=== PATIENT | male | born 1990 | race American Indian/Alaskan Native ===

== ENCOUNTER 2016-10-04 09:48 | Emergency (ER) | payer OTHER ==
[2016-10-04 10:43] VITALS: BP 131/77
--- NOTE | 2016-10-04 13:20 | Emergency Department Report ---
HPI - General Chief Complaint: Extremity Injury, Upper Time Seen by Provider: 10/04/16 13:19 - HPI HPI: Patient is a 25-year-old male who presents to the ED complaining of foreign object in finger times one day. Patient states he was working on a car yesterday when he had this complaints or something enter his left index finger. Patient states today he started to experience pain on that finger. Patient states the finger feels tight and feels throbbing type pain with 5 out of 10 intensity. Patient states yesterday his friend was able to pull black object from the finger but patient does not recall what it was. Patient denies fevers/chills/nausea/vomiting/abdominal pain or shortness of breath or chest pain ED Past Medical Hx - Past Medical History Previous Medical History?: No - Surgical History Past Surgical History?: No - Social History Smoking Status: Unknown if ever smoked Substance Use Type: None - Medications Home Medications: Home Medications Medication Instructions Recorded Confirmed Last Taken Type Ibuprofen [Motrin 800 MG tab] 800 mg PO Q8HR PRN #30 tablet 10/04/16 Unknown Rx ED Review of Systems ROS: Stated complaint: OBJECT IMPALED IN LEFT PHALANGES/AT WORK Other details as noted in HPI Constitutional: denies: chills, fever Eyes: denies: eye pain, eye discharge, vision change ENT: denies: ear pain, throat pain Respiratory: denies: cough, orthopnea, shortness of breath, SOB with exertion, wheezing Cardiovascular: denies: chest pain, palpitations Endocrine: no symptoms reported Gastrointestinal: denies: abdominal pain, nausea, vomiting, diarrhea Genitourinary: denies: urgency, dysuria Musculoskeletal: denies: back pain, joint swelling, arthralgia Skin: denies: rash, lesions Neurological: denies: headache, weakness, numbness, paresthesias Psychiatric: denies: anxiety, depression Hematological/Lymphatic: denies: easy bleeding, easy bruising, swollen glands Physical Exam - Physical Exam Vital Signs: Vital Signs 10/04/16 10:31 Temperature 97.9 F Pulse Rate 62 Respiratory 18 Rate Blood Pressure 131/77 O2 Sat by Pulse 100 Oximetry General: Alert and oriented 3. Vital signs stable Physical Exam: GENERAL: Alert and oriented x3, no apparent distress, Normal Gait, atraumatic. HEAD: Head is normocephalic and a-traumatic. EYES: Extra ocular muscles are intact. Pupils are equal, round, and reactive to light and accommodation. EARS: symetrical, atraumatic, non tender, ear canal clear and moderate cerumen, tympanic membrance non inflamed. gross auditory nml bilaterally. NOSE: Nose symetrical, Nontender,Nares appeared normal. MOUTH:Mouth is well hydrated and without lesions. Tonsils nonerythematous or swollen, Uvula midline, Tongue not elevated. Mucous membranes are moist. Posterior pharynx clear, no exudate or lesions. Patent airways. NECK: Supple. Non edematous, No carotid bruits. No lymphadenopathy or thyromegaly. LUNGS: Symetrical with respiration, No wheezing, no rales or crackles, CTAB. HEART: S1, S2 present, regular rate and rhythm without murmur, no rubs, no gallops. ABDOMEN: No organomegaly was noted,Positive bowel sounds, soft, and non- distended. . Nontender to palpation on all Quadrants, NO CVA tenderness. EXTREMITIES/MUSCULOSKELETAL: No cyanosis, clubbing, rash, lesions or edema. Full ROM bilaterally. UE/LE Pulses 2+ bilaterally. LE and UE 5+ strength bilaterally FINGER:pin point black point of entry on left index distal finger, tender to palpation, full ROM , sensory touch intact, no feeling of foreign object palpated NEUROLOGIC: No focal Deficit, Cranial nerves II through XII are grossly intact. No loss of sensation, No facial droop, PSYCHIATRIC: Mood is congruent with affect, denies suicidal or homicidal ideations. SKIN: Warm and dry, No lesions, No ulceration or induration present. ED Course Vital Signs 10/04/16 10:31 Temperature 97.9 F Pulse Rate 62 Respiratory 18 Rate Blood Pressure 131/77 O2 Sat by Pulse 100 Oximetry ED Medical Decision Making - Medical Decision Making 25-year-old male presents with finger pain secondary to metal splint. Vital signs stable. In no acute distress ED course: Patient received tetanus booster IM to cover against tetanus infection.. Discussed the patient will follow up with primary care physician. Discussed rest and elevated and ice it. Discussed Motrin when necessary for pain Critical care attestation.: If time is entered above; I have spent that time in minutes in the direct care of this critically ill patient, excluding procedure time. ED Disposition Clinical Impression: Finger, superficial foreign body (splinter) Disposition: DISCHARGED TO HOME OR SELFCARE Is pt being admited?: No Does the pt Need Aspirin: No Condition: Stable Instructions: Blister (ED), Arthralgia (ED) Additional Instructions: Follow-up with primary care physician as referred Ice/heat apply 3-4 times a day to affected hand Rest Prescriptions: Ibuprofen [Motrin 800 MG tab] 800 mg PO Q8HR PRN #30 tablet PRN Reason: Pain Referrals: PRIMARY CARE, [Primary Care Provider] - 3-5 Days [facility] [Outside] - 3-5 Days [facility] [Outside] - 3-[address] [facility] [Outside] - 3-5 Days [facility] [Outside] - 3-5 Days Forms: Work/School Release Form(ED) Time of Disposition: 14:19
[2016-10-04] MEDS ORDERED: BOOSTRIX IM ONE (13:44)
[2016-10-04] MEDS ORDERED: MOTRIN PO ONE (13:44)
== END 2016-10-04 14:38 | disposition home or self-care (01) ==
LOC: ED 09:48
DX: S60.451A Superficial foreign body of left index finger, initial encounter (principal); W45.8XXA Other foreign body or object entering through skin, initial encounter; Y93.9 Activity, unspecified; Y92.9 Unspecified place or not applicable; Y99.9 Unspecified external cause status
CPT/HCPCS: 90471; 90715